=== PATIENT | female | born 1985 | race Caucasian/White ===

== ENCOUNTER 2017-11-02 09:27 | Observation (INO) | payer BC ==
[~2017-11-02] VITALS: Ht 167.6 cm; Wt 69.4 kg
[2017-11-02 09:50] LABS: HEMATOCRIT 47.5 % (36.0-46.0); HEMOGLOBIN 15.9 G/DL (11.9-15.5); MCH 30.8 PG (29.0-34.0); MCHC 33.5 G/DL (30.0-36.0); MCV 92.1 FL (83-99); PLATELET COUNT 213 K/uL (156-360); RBC DIS.WIDTH-CV 11.9 % (11.8-14.6); RBC DIS.WIDTH-SD 40.1 % (39-53); RED BLOOD COUNT 5.16 M/uL (3.80-5.20); WHITE BLOOD COUNT 12.5 K/uL (4.1-10.2)
[2017-11-02 10:04] LABS: ALBUMIN 3.9 g/dL (3.2-4.8); CHLORIDE 105 mEq/L (99-109); POTASSIUM 3.8 mEq/L (3.7-5.4); SODIUM 140 mEq/L (136-147)
[2017-11-02 10:06] LABS: GLUCOSE 98 mg/dL (70-99)
[2017-11-02 10:07] LABS: TOTAL PROTEIN 7.4 g/dL (6.4-8.3)
[2017-11-02 10:08] LABS: TOTAL BILIRUBIN 0.4 mg/dL (0.0-1.0)
[2017-11-02 10:10] LABS: ALKALINE PHOSPHATASE 62 IU/L (3-129); CREATININE 0.9 mg/dL (0.6-1.3); GFR ESTIMATE (CALCULATED) > 59 mL/min/
[2017-11-02 10:11] LABS: UREA NITROGEN (BUN) 6 mg/dL (9-23)
[2017-11-02 10:12] LABS: AST (GOT) 21 IU/L (2-34)
[2017-11-02 10:13] LABS: ALT (GPT) 13 IU/L (3-49)
[2017-11-02 10:19] LABS: QUANTITATIVE HCG < 4.0 MIU/ML
[2017-11-02 10:42] LABS: APPEARANCE SL.HAZY ((CLEAR)); BILIRUBIN NEGATIVE; BLOOD MODERATE; COLOR AMBER ((YELLOW)); GLUCOSE (STRIP) NEGATIVE; KETONES 5; LEUKOCYTES TRACE; NITRITE POSITIVE; PROTEIN (STRIP) 30; SPECIFIC GRAVITY 1.027 (1.000-1.030); UROBILINOGEN 0.2 MG/DL (0.2-1.0)
[2017-11-02 11:00] LABS: BACTERIA 3+ /HPF; EPITHELIAL CELLS 1+ /HPF; MUCUS 4+ /LPF; RED BLOOD CELLS 0-5 /HPF (0-5); UCUL ADDED? YES
[2017-11-02] MEDS ORDERED: CAMILA0.35 MG PO (16:32)
[2017-11-02] MEDS ORDERED: TOPROL XL25 MG PO (16:32)
[2017-11-02] MEDS ORDERED: TYLENOL EXTRA500 MG PO (16:33)
[2017-11-02] MEDS ORDERED: BENADRYL25 MG PO (16:33)
[2017-11-02 18:10] LABS: C DIFF TOXIN NEGATIVE (NEGATIVE)
[2017-11-02 18:49] VITALS: BP 122/67
[2017-11-02 19:00] VITALS: BP 121/66
[2017-11-02 19:43] VITALS: BP 115/62
[2017-11-03 00:45] VITALS: BP 131/90
[2017-11-03 06:19] LABS: HEMATOCRIT 38.8 % (36.0-46.0); MCH 30.4 PG (29.0-34.0); MCHC 33.2 G/DL (30.0-36.0); MCV 91.5 FL (83-99); PLATELET COUNT 181 K/uL (156-360); RBC DIS.WIDTH-CV 11.8 % (11.8-14.6); RBC DIS.WIDTH-SD 39.6 % (39-53); RED BLOOD COUNT 4.24 M/uL (3.80-5.20); WHITE BLOOD COUNT 9.6 K/uL (4.1-10.2)
[2017-11-03 06:26] LABS: CHLORIDE 106 MEQ/L (99-109); CREATININE 0.7 MG/DL (0.6-1.3); GFR ESTIMATE (CALCULATED) > 59 mL/min/; GLUCOSE 136 mg/dL (70-99); POTASSIUM 3.6 MEQ/L (3.7-5.4); SODIUM 139 MEQ/L (136-147); UREA NITROGEN (BUN) 4 mg/dL (9-23)
[2017-11-03 06:28] LABS: HEMOGLOBIN 12.9 G/DL (11.9-15.5)
[2017-11-03 11:00] VITALS: BP 103/60
[2017-11-03] MEDS ORDERED: CIPRO500 MG PO (11:15)
[2017-11-03] MEDS ORDERED: FLAGYL500 MG PO (11:16)
== END 2017-11-03 14:15 | disposition home or self-care (01) ==
LOC: EME 09:27 → EDOF 15:57 → 5WEST 15:57 → ENRESERV 16:02 → 5WEST 17:04
PROVIDERS: Emergency Medicine; Internal Medicine
DX: K52.9 Noninfective gastroenteritis and colitis, unspecified (principal); E87.6 Hypokalemia; Z88.0 Allergy status to penicillin
CPT/HCPCS: 74177; 80048; 80053; 81003; 82948; 83630; 84702; 85027; 85651; 86140; 87040; 87077; 87086; 87177; 87186; 87493; 87506; 99281; 99285; G0378; J0744; J2405; J7120; S0028; S0030